=== PATIENT | female | born 1985 | race African-American/Black ===

== ENCOUNTER → 2017-12-09 | Outpatient (CLI) | payer OTHER ==
[2017-12-09 13:45] LABS: BASO # 0.1 10^3/uL (0.0-0.2); BASO % 0.5 % (0.0-1.0); EOS # 0.2 10^3/uL (0.0-0.50); EOS % 1.9 % (0.0-3.0); HEMATOCRIT 38.2 % (36.0-47.0); HEMOGLOBIN 11.9 g/dl (12.0-15.5); IMMATURE GRANULOCYTE % 0.9 % (0-3.0); LYMPH # 2.5 10^3/uL (1.5-4.5); LYMPH % 22.7 % (24.0-44.0); MEAN CORPUSCULAR HEMOGLOBIN 27.9 pg (27.0-33.0); MEAN CORPUSCULAR HGB CONC 31.2 g/dl (32.0-36.5); MEAN CORPUSCULAR VOLUME 89.7 fl (80.0-96.0); MONO # 0.7 10^3/uL (0.0-0.8); MONO % 6.1 % (0.0-5.0); NEUTROPHILS # 7.5 10^3/uL (1.8-7.7); NEUTROPHILS % 67.9 % (36.0-66.0); PLATELET COUNT, AUTOMATED 224 10^3/uL (150-450); RED BLOOD COUNT 4.26 10^6/uL (4.00-5.40); RED CELL DISTRIBUTION WIDTH 12.9 % (11.5-14.5)
[2017-12-09 14:49] LABS: HBsAg Prenatal NEGATIVE (NEGATIVE); HIV 1&2 SCREEN CENTAUR NEGATIVE (NEGATIVE); RUBELLA IgG QUALITATIVE IMMUNE (IMMUNE)
[2017-12-09 14:49] LABS: HEPATITIS C VIRUS ABY INDEX < 0.0 INDEX (<0.8)
[2017-12-09 15:13] LABS: CHLAMYDIA DNA AMPLIFICATION NEGATIVE (NEGATIVE); GC DNA AMPLIFICATION NEGATIVE (NEGATIVE)
== END ==
LOC: M SMT 09:03
DX: Z34.82 Encounter for supervision of other normal pregnancy, second trimester (principal); Z36.89 Encounter for other specified antenatal screening
CPT/HCPCS: 86762

== ENCOUNTER → 2018-01-06 | Outpatient (CLI) | payer OTHER | LOC: M RAD 11:03 | DX: Z34.82 Encounter for supervision of other normal pregnancy, second trimester (principal); Z36.89 Encounter for other specified antenatal screening; Z3A.18 18 weeks gestation of pregnancy | CPT/HCPCS: 76811 ==

== ENCOUNTER → 2018-03-27 | Outpatient (CLI) | payer OTHER ==
--- NOTE | 2018-03-27 21:04 | REP ---
Clinical: Growth discrepancy for re-evaluation. Comparison: 01/06/2018 . Findings: Examination demonstrates a single live intrauterine in cephalic presentation. motion is identified by technologist. Placenta is noted anterior and grade grade 1 without evidence for placenta previa or abruption. Amniotic fluid volume is normal. Cervix appears closed. No evidence for nuchal cord. Gestational age by LMP 29 weeks 4 days with MONIKA 06/08/2018 . Gestational age by current measurements 29 weeks 6 days with MONIKA see 06/06/2018 . FHR equals 147 beats per minute. BPD 7.2 cm 29 weeks 0 days HC 26.6 cm 29 weeks 0 days AC 26.1 cm 30 weeks 2 days FL 6.1 cm 31 weeks 5 days HC/AC ratio 1.02 Estimated weight 1586 grams ( 63rd percentile). Amniotic fluid index: 12.4 cm (9.1 - 23.3) Umbilical cord SD ratio: 2.80 (2.50 - 3.50). Impression: Single live intrauterine in cephalic presentation demonstrating appropriate interval growth. No gross abnormalities are identified. Electronically Signed by Lucio Manrique MD 03/27/2018 08:55 P
== END ==
LOC: M SMT 11:12
PROVIDERS: ATTEND Advanced Practice Midwife
DX: O26.843 Uterine size-date discrepancy, third trimester (principal); Z3A.29 29 weeks gestation of pregnancy

== ENCOUNTER → 2018-03-27 | Outpatient (CLI) | payer OTHER ==
[2018-03-27 13:51] LABS: BASO % 0.4 % (0.0-1.0); EOS # 0.2 10^3/uL (0.0-0.50); EOS % 1.7 % (0.0-3.0); HEMOGLOBIN 9.6 g/dl (12.0-15.5); LYMPH # 1.8 10^3/uL (1.5-4.5); LYMPH % 17.5 % (24.0-44.0); MEAN CORPUSCULAR HEMOGLOBIN 27.8 pg (27.0-33.0); MEAN CORPUSCULAR VOLUME 89.9 fl (80.0-96.0); MONO # 0.8 10^3/uL (0.0-0.8); MONO % 7.6 % (0.0-5.0); NEUTROPHILS # 7.5 10^3/uL (1.8-7.7); NEUTROPHILS % 71.9 % (36.0-66.0); PLATELET COUNT, AUTOMATED 195 10^3/uL (150-450); RED BLOOD COUNT 3.45 10^6/uL (4.00-5.40); WHITE BLOOD COUNT 10.5 10^3/uL (4.0-10.0)
== END ==
LOC: M SMT 08:50
PROVIDERS: ATTEND Specialist
DX: Z34.82 Encounter for supervision of other normal pregnancy, second trimester (principal)

== ENCOUNTER → 2018-05-09 | Outpatient (REF) | payer OTHER | LOC: M LAB REF 13:10 | PROVIDERS: ATTEND Advanced Practice Midwife | DX: O99.213 Obesity complicating pregnancy, third trimester (principal); Z3A.00 Weeks of gestation of pregnancy not specified ==

== ENCOUNTER → 2018-05-16 | Outpatient (CLI) | payer OTHER ==
--- NOTE | 2018-05-16 17:26 | REP ---
Third trimester ultrasound for size, date discrepancy: There is a single intrauterine gestation in a vertex presentation. The heart rate is 147 beats per minute. The placenta is anterior without previa. The amniotic fluid volume subjectively is normal. The amniotic fluid index is 8.1 (7.6 - 24.6). Gestational age by today's ultrasound 36 weeks 4 days /MONIKA 06/09/2018. Gestational age by the first ultrasound is 36 weeks 5 days/MONIKA 06/08/2018. Gestational age by LMP is 36 weeks 5 days/MONIKA 06/08/2018. weight is 3002 grams/6 pounds, 9 ounces. This is the 52nd percentile for 36 weeks 5 days. Umbilical artery mid cord Doppler: S/D ratio 2.62 (2.30-3.30) Resistive Index 0.62 (0.59-0.75 Diastolic Velocity 17.7, (>10 cm/sec) Electronically Signed by Carlos Malhotra MD 05/16/2018 05:18 P
== END ==
LOC: M SMT 12:27
PROVIDERS: ATTEND Obstetrics & Gynecology
DX: O99.213 Obesity complicating pregnancy, third trimester (principal); O26.843 Uterine size-date discrepancy, third trimester; Z3A.36 36 weeks gestation of pregnancy

== ENCOUNTER 2018-06-05 18:17 | Inpatient (IN) | payer OTHER ==
[~2018-06-05] VITALS: Ht 165.1 cm; Wt 150.2 kg
[2018-06-05] VITALS (7 sets, daily range): BP systolic 124–142; BP diastolic 59–72
[2018-06-05 20:46] LABS: HEMATOCRIT 31.3 % (36.0-47.0); HEMOGLOBIN 9.8 g/dl (12.0-15.5); MEAN CORPUSCULAR HEMOGLOBIN 27.8 pg (27.0-33.0); MEAN CORPUSCULAR HGB CONC 31.3 g/dl (32.0-36.5); MEAN CORPUSCULAR VOLUME 88.9 fl (80.0-96.0); PLATELET COUNT, AUTOMATED 211 10^3/uL (150-450); RED BLOOD COUNT 3.52 10^6/uL (4.00-5.40); WHITE BLOOD COUNT 9.9 10^3/uL (4.0-10.0)
[2018-06-05] MEDS: miSOPROStol 50 MCG 1/2 TAB (S0191) SL SCH (20:46)
--- NOTE | 2018-06-05 22:07 | HPE ---
DATE OF ADMISSION: 06/05/2018 A 32-year-old 3, para 2 female at 40 and 1/7 weeks gestation by 14-week ultrasound, estimated date of confinement (EDC) of 06/04/2018, presents for elective induction of labor. She has occasional contractions. She denies vaginal bleeding. COURSE: The patient initiated care at 14 weeks gestation on 12/19/2017. Her blood pressure at that time was 122/70, weight 271 pounds. Her course was unremarkable. Ultrasound for growth on 05/16/2018 estimated weight at 3002 grams or 52nd percentile. OBSTETRICAL HISTORY: 1. February 2005: 39 week vaginal delivery, 6 pound female infant. No complications. 2. January 2007: 40 weeks, vaginal delivery, 6 pound 12 ounce female infant. No complications. MEDICAL HISTORY: Obesity. SURGICAL HISTORY: None. ALLERGIES: None. SOCIAL HISTORY: The patient lives in [place]. The father of the baby is not involved. She denies cigarettes, alcohol, or drug use during . FAMILY HISTORY: Noncontributory. PHYSICAL EXAMINATION: Blood pressure 134/78, weight 340 pounds, pulse 84, She is in no apparent distress. Head and neck exam: Normal. Lungs: Clear. Heart: Regular rate and rhythm. Abdomen: Nontender, gravid. heart tones: Category 1. Sterile Vaginal Exam: 1 cm long, -3 posterior. Extremities: Nontender, 2+ edema lower extremities. LABS: Blood type B positive, rubella immune, RPR nonreactive, diabetes screen 92, GBS negative 05/09/2018. ASSESSMENT: A 32-year-old 3, para 2 female, 40 and 1/7 weeks gestation, presents for labor induction. PLAN: Patient was admitted on 06/05/2018. Risks of induction were discussed.
[2018-06-06] VITALS (47 sets, daily range): BP systolic 107–175; BP diastolic 55–113
[2018-06-06] MEDS: miSOPROStol 50 MCG 1/2 TAB (S0191) SL SCH ×2 (02:04→08:51)
--- NOTE | 2018-06-06 08:02 | IPNPDOC ---
Text Note Date of Service The patient was seen on 06/06/18. NOTE Reports feeling crampy "like menses" Irregular UC on monitor FH Cat I SVE unchanged Continue misoprostol at this time. Consider pitocin and cooks catheter later today Pt plans epidural when required. VS,Fishbone, I+O VS, Fishbone, I+O Laboratory Tests 06/05/18 20:37 Red Blood Count 3.52 L, Mean Corpuscular Volume 88.9, Mean Corpuscular Hemoglobin 27.8, Mean Corpuscular Hemoglobin Concent 31.3 L, Red Cell Distribution Width 13.8 Vital Signs Date Time Temp Pulse Resp B/P (MAP) Pulse Ox O2 Delivery O2 Flow Rate FiO2 06/06/18 07:24 98.4 06/06/18 06:58 76 131/56 (81) 06/06/18 06:01 18 06/05/18 18:46 99 Susan Ferguson CNM Jun 06, 2018 08:02
[2018-06-06] MEDS: miSOPROStol 50 MCG 1/2 TAB (S0191) PO SCH ×3 (14:23→19:55)
[2018-06-06] MEDS ORDERED: OXYTOCIN 30 UNITS IN 0.9% NaCl 500ML IV BAG (J2590) As Ordered ONE (20:06)
--- NOTE | 2018-06-06 20:24 | IPNPDOC ---
Text Note Date of Service The patient was seen on 06/06/18. NOTE Misoprostol x 4 doses Irregular UC Cat I tracing, difficult to trace due to activity SVE /-2, midplane Cooks catheter placed, 60/40 Start pitocin Pt plans epidural VS,Fishbone, I+O VS, Fishbone, I+O Laboratory Tests 06/05/18 20:37 Red Blood Count 3.52 L, Mean Corpuscular Volume 88.9, Mean Corpuscular Hemoglobin 27.8, Mean Corpuscular Hemoglobin Concent 31.3 L, Red Cell Distribution Width 13.8 Vital Signs Date Time Temp Pulse Resp B/P (MAP) Pulse Ox O2 Delivery O2 Flow Rate FiO2 06/06/18 19:32 83 143/74 (97) 06/06/18 19:14 97.7 16 06/05/18 18:46 99 Susan Ferguson CNM Jun 06, 2018 20:24
[2018-06-06] MEDS ORDERED: PROMETHAZINE INJ 25 MG/ML VIAL (J2550) IV ONE (20:30)
[2018-06-06] MEDS ORDERED: BUTORPHANOL 2 MG/ML INJ (J0595) IV ONE (20:30)
[2018-06-06] MEDS ORDERED: OXYTOCIN DRIP 30 UNITS in APPROPRIATE DILUENT 1 EA IV SCH (20:30)
--- NOTE | 2018-06-06 23:30 | IPNPDOC ---
Text Note Date of Service The patient was seen on 06/06/18. NOTE Cooks catheter out in toilet SROM clear blood tinged fluid in toilet SVE /-2 IUPC, FSE placed FH 150, Minimal/moderate variability UC 2-4 minutes apart x 45-60 seconds Pt desires epidural VS,Fishbone, I+O VS, Fishbone, I+O Vital Signs Date Time Temp Pulse Resp B/P (MAP) Pulse Ox O2 Delivery O2 Flow Rate FiO2 06/06/18 21:09 75 18 142/88 (106) 06/06/18 19:14 97.7 06/05/18 18:46 99 Susan Ferguson CNM Jun 06, 2018 23:30
[2018-06-07] VITALS (75 sets, daily range): BP systolic 89–193; BP diastolic 48–114
[2018-06-07] MEDS ORDERED: ENOXAPARIN 40 MG/0.4 ML SYRINGE (J1650) SC SCH
[2018-06-07] MEDS: miSOPROStol 50 MCG 1/2 TAB (S0191) PO SCH ×2 (01:00→05:00)
--- NOTE | 2018-06-07 01:22 | IPNPDOC ---
Text Note Date of Service The patient was seen on 06/07/18. NOTE Anesthesia unable to place epidural catheter. Procedure aborted at pt request IUPC displaced, external toco applied. UC difficult to trace due to habitus FH via FSE minimal/moderate variabilit, Cat II at the moment Hydrate, evaluate for UC and labor progress. Will update physician VS,Fishbone, I+O VS, Fishbone, I+O Vital Signs Date Time Temp Pulse Resp B/P (MAP) Pulse Ox O2 Delivery O2 Flow Rate FiO2 06/06/18 21:09 75 18 142/88 (106) 06/06/18 19:14 97.7 06/05/18 18:46 99 I&O- Last 24 Hours up to 6 AM 06/07/18 06:00 Intake Total 1660 ml Output Total 1450 ml Balance 210 ml Susan Ferguson CNM Jun 07, 2018 01:22
[2018-06-07] MEDS: LR 1,000 ML IV SCH ×3 (02:18→14:29)
--- NOTE | 2018-06-07 05:00 | IPNPDOC ---
Text Note Date of Service The patient was seen on 06/07/18. NOTE Have been unable to initiate pitocin due to intermittant Cat II tracings 4 minute deceleration to 60's with slow return, now 130 with minimal variability UC approximately 10 minutes apart SVE 6 cm, remains far posterior, -3, maternal guarding Dr Wilcox requested to attend VS,Bob, I+O VS, Fishbone, I+O Vital Signs Date Time Temp Pulse Resp B/P (MAP) Pulse Ox O2 Delivery O2 Flow Rate FiO2 06/07/18 03:41 73 16 146/62 (90) 06/07/18 03:04 98.4 06/05/18 18:46 99 I&O- Last 24 Hours up to 6 AM 06/07/18 06:00 Intake Total 3155 ml Output Total 2150 ml Balance 1005 ml Susan Ferguson CNM Jun 07, 2018 05:00
[2018-06-07] MEDS ORDERED: FENTANYL 2MCG/ML ROPIVACAINE 0.2% IN 0.9% NACL 100ML IVBAG As Ordered ONE ×2 (08:07)
[2018-06-07] MEDS ORDERED: EPIDURAL/PCA KEYS XX PRN (08:30)
[2018-06-07] MEDS ORDERED: FENTANYL/ROPIVACAINE/NACL BAG 100 ML EPIDURAL SCH (08:30)
[2018-06-07] MEDS ORDERED: ONDANSETRON 4MG/2ML VIAL (J2405) IV PRN ×2 (08:30→17:00)
[2018-06-07] MEDS ORDERED: ePHEDrine SULFATE 25 MG/5 ML(5MG/ML) SYRINGE IV PRN (08:30)
[2018-06-07] MEDS ORDERED: LACTATED RINGER'S 1000 ML IV PRN (08:30)
[2018-06-07] MEDS ORDERED: diphenhydrAMINE INJ 50MG/ML VIAL (J1200) IV PRN (08:30)
[2018-06-07] MEDS ORDERED: EPIDURAL COMMENT XX SCH (08:30)
[2018-06-07] MEDS ORDERED: REFRIGERATOR IV KEYS XX PRN (08:30)
[2018-06-07] MEDS ORDERED: NALOXONE INJ 0.4 MG/1 ML VIAL (J2310) IV PRN (08:30)
[2018-06-07] MEDS ORDERED: MORPHINE PRES-FREE INJ 10 MG/10 ML VIAL (J2274) As Ordered ONE (13:46)
[2018-06-07] MEDS ORDERED: ONDANSETRON 4MG/2ML VIAL (J2405) As Ordered ONE (13:46)
[2018-06-07] MEDS ORDERED: KETOROLAC 60 MG/2 ML VIAL (J1885) As Ordered ONE (13:46)
[2018-06-07] MEDS ORDERED: BUPIVACAINE/DEXTROSE 0.75% 2 ML AMP As Ordered ONE (13:46)
[2018-06-07] MEDS ORDERED: LIDOCAINE PRES-FREE 2% 10ML AMP As Ordered ONE (13:54)
--- NOTE | 2018-06-07 14:19 | NUR ---
Progress Note Pt comfortable with epidural. No VB. No rectovaginal pressure. Continued LOF. No SILVER, visual changes, RUQ pain, sob, cp. VSS,af, currently normotensive. SVE: 5/50/-3, caput/molding. FSE: reactive, mod maurice, normal baseline, intermittent variable and late decels. Cat II Che[place]an: contractions every 7-10 minutes. A/P: Arrest of dilation. Cat II FHR, but overall reassuring FHR -Pitocin shut off -Recommended proceeding with PLTCS for arrest of dilation. -Pt agrees with plan and informed consent obtained. -Anesthesia notified; preparations for OR being made. Dimple Wilcox DO
[2018-06-07] MEDS ORDERED: BICITRA 30ML SOLN UDC PO ONE (14:30)
[2018-06-07] MEDS ORDERED: AZITHROMYCIN INJ 500 MG, VIAL MATE ADAPTER 1 EACH in D5W 250 ML IV ONE (14:30)
[2018-06-07] MEDS ORDERED: ePHEDrine SULFATE 25 MG/5 ML(5MG/ML) SYRINGE As Ordered ONE (16:08)
[2018-06-07] MEDS ORDERED: PERCOCET PO (16:48)
[2018-06-07] MEDS ORDERED: IBUP80TA PO (16:49)
[2018-06-07] MEDS ORDERED: COLA100C5 PO (16:50)
--- NOTE | 2018-06-07 16:55 | NUR ---
Operative Note Date of procedure: 06/07/2018 Procedure:, Primary low-transverse section Anesthesia: Epidural Preoperative diagnosis: Arrest of dilation at 5 cm Gestational hypertension 40+3 weeks gestation Postoperative diagnosis: Same as preoperative Evidence of pelvic inflammatory disease, pelvic adhesive disease Indication: Arrest of dilation at 5 cm while undergoing an induction of labor Primary surgeon: Joshua Wilcox D.O., [employer]:. Dr. Mamadou DO (needed for surgical site exposure and assistance with delivery) Estimated blood loss: 600 ml IV fluids administered: 700 ml crystalloid Drains: Navarro catheter. Urine output: 100 ml [place] data: Apgars 8 and 9. Birthweight, 3360 g 7 lbs. 7 oz. Male. Preoperative/prophylactic antibiotics: Ancef 2 g IV (given within 30 minutes prior to surgical start time). Azithromycin 500 mg IV 1. Intraoperative findings: Pelvic adhesions all throughout the lower uterine segment and lower abdomen/ pelvis. Cephalic presentation. Specimen(s): None Procedure: The patient was counseled and consented on the risks, benefits, indications and alternatives of the procedure. Informed consent was obtained and placed in the c buchanan. She was taken to the operating room with an IV running. She was placed on the operating table. Spinal anesthesia was administered without any difficulty and found to be adequate. She was placed in the dorsal supine position with a leftward tilt. Sequential compression devices were placed on the lower extremities. A Navarro catheter was placed under sterile conditions. She was sterilely prepped and draped. A surgical timeout was performed per protocol. Spinal anesthesia was again found to be adequate. Using the 10 blade a Pfannenstiel incision was performed. The 10 blade was used to dissect down to the level of the rectus sheath fascia. The rectus sheath fas ernie was incised at the midline, and the fascial incision was extended with Montaño scissors. Dominick clamps were used to grasp the superior and inferior aspect of the fascial incision and the rectus muscle bellies were dissected off sharply and bluntly. The midline was identified and the rectus muscle bellies were manually . The peritoneum was identified and clamped with hemostats and elevated. The peritoneum was then incised with Metzenbaum scissors. Entry into the intraperitoneal cavity was achieved. The peritoneal opening was extended with manual stretch . There was good visualization of both the bladder and the lower uterine segment. The Mobius retractor was placed. The vesicouterine peritoneum was dissected with Metzenbaum scissors and blunt dissection. A low transverse uterine incision was made with a new 10 blade. The hysterotomy was extended with manual stretch. The amniotic sac was protruding and then artificially ruptured. Clear amniotic fluid was noted. The baby's head delivered through the hysterotomy with ease. The remainder of the body delivered with ease. The cord was doubly clamped and cut and the baby was handed off to awaiting care. See data above. The placenta was manually removed and noted to be fully intact. The uterus was exteriorized. The intrauterine cavity was cleared of all clot and debris with a laparotomy sponge. The hysterotomy was closed with 0 Vicryl in running, locked fashion. A second imbricating closure was performed over the initial layer closure using 0 Vicryl. The hysterotomy was noted to be hemostatic. The posterior cul-de-sac was irrigated and cleared of all clot and debris. The uterus was replaced back into the abdomen. The paracolic gutters were cleared of all clot and debris with damp laparotomy sponges. The hysterotomy is reinspected and noted to be hemostatic. Sponge, needle and instrument counts were correct. The peritoneum was closed with 3-0 Vicryl in running fashion. The rectus muscle bellies were reapproximated with 3-0 Vicryl with a series of interrupted sutures. The rectus muscle bellies were noted to be hemostatic. The fascia was closed with 0 Vicryl in running fashion. Sponge, needle and instrument counts were again correct. The subcutaneous layer was irrigated. Small subcutaneous bleeders were cauterized with Bovie. The subcutaneous layer was reapproximated with 3-0 Vicryl in running fashion. The skin was closed with 3-0 Monocryl in subcuticular fashion. A bandage was placed over the closed incision. The final sponge, instrument and needle count was correct. She tolerated the entire procedure very well. She was transferred to the PACU in good and stable condition. Dr. Joshua Wilcox D.O., [email or web address].Chloe.Justen.G
[2018-06-07] MEDS ORDERED: PERCOCET 5MG/325MG TAB PO PRN ×2 (17:00)
[2018-06-07] MEDS ORDERED: MEASLES,MUMPS,RUBELLA VACCINE INJ (MMR-II) (90707) SC SCH (17:00)
[2018-06-07] MEDS ORDERED: METOCLOPRAMIDE INJ 10MG/2ML VIAL (J2765) IV PRN (17:00)
[2018-06-07] MEDS ORDERED: LR 1,000 ML IV SCH (17:00)
[2018-06-07] MEDS ORDERED: PROMETHAZINE 25 MG TAB PO PRN (17:00)
[2018-06-07] MEDS ORDERED: RHOGAM 300 MCG (1500 IU) INJ (J2790) IM SCH (17:00)
[2018-06-07] MEDS ORDERED: fentaNYL 100 MCG/2 ML INJECTION (J3010) IV PRN (17:00)
[2018-06-07] MEDS ORDERED: OXYTOCIN DRIP 30 UNITS in APPROPRIATE DILUENT 1 EA IV SCH (17:15)
[2018-06-07] MEDS: DOCUSATE SODIUM 100 MG CAP PO SCH (21:00)
[2018-06-07] MEDS ORDERED: KETOROLAC 30 MG/ML VIAL (J1885) IV SCH (21:00)
[2018-06-07] MEDS: KETOROLAC 30 MG/ML VIAL (J1885) IV SCH (22:15)
[2018-06-07] MEDS: ONDANSETRON 4MG/2ML VIAL (J2405) IV PRN (22:15)
[2018-06-07] MEDS: ENOXAPARIN 40 MG/0.4 ML SYRINGE (J1650) SC SCH (23:54)
[2018-06-08 02:00] VITALS: BP 133/79
[2018-06-08] MEDS: KETOROLAC 30 MG/ML VIAL (J1885) IV SCH ×2 (04:16→10:00)
[2018-06-08 06:00] VITALS: BP 127/67
[2018-06-08 06:57] LABS: HEMATOCRIT 32.3 % (36.0-47.0); HEMOGLOBIN 9.8 g/dl (12.0-15.5); MEAN CORPUSCULAR HEMOGLOBIN 27.4 pg (27.0-33.0); MEAN CORPUSCULAR HGB CONC 30.3 g/dl (32.0-36.5); MEAN CORPUSCULAR VOLUME 90.2 fl (80.0-96.0); PLATELET COUNT, AUTOMATED 212 10^3/uL (150-450); RED BLOOD COUNT 3.58 10^6/uL (4.00-5.40); WHITE BLOOD COUNT 13.3 10^3/uL (4.0-10.0)
--- NOTE | 2018-06-08 07:56 | NUR ---
Postoperative Day 1 Status post primary low transverse section, uncomplicated. Subjective Pain is well controlled. Lochia is decreasing and minimal. Navarro removed this AM; still due to void. Tolerating a regular diet. Ambulating without any angelica tance. Denies any subjective fever, chills, nausea, vomiting, headache, visual changes, shortness of breath, chest pain. Objective Vitals: Normotensive, normal heart rate, afebrile, adequate urine output. Heart: regular, rate, and rhythm. no murmurs/gallops/rubs Lungs: clear to auscultation bilaterally, no wheezes/crackles/rales/ronchi Abd: soft, nontender, nondistended, uterine fundus is 2cm below umbilicus and firm Incision: clean, dry, intact Ext: no significant edema, nontender, negative Addison's bilaterally. Preoperative H/H: 9.8/31.3 Postoperative H/H: 9.8/32.3 Assessment/Plan: Postoperative day 1 status post primary low transverse section. Recovering well. Hemodynamically stable, afebrile, good pain control. -Routine care -Discharge to home tomorrow -Routine infectious, fever, pain, and bleeding precautions reviewed -Incision/wound care precautions reviewed. Romy Bird.O., F.A.C.O.G.
[2018-06-08] MEDS: ENOXAPARIN 40 MG/0.4 ML SYRINGE (J1650) SC SCH ×2 (08:49→21:01)
[2018-06-08] MEDS: ONDANSETRON 4MG/2ML VIAL (J2405) IV PRN (08:49)
[2018-06-08] MEDS: DOCUSATE SODIUM 100 MG CAP PO SCH ×2 (08:49→21:00)
[2018-06-08] MEDS: PRENATAL VITAMINS CHEWABLE TABLET PO SCH (08:49)
[2018-06-08 10:26] VITALS: BP 129/60
[2018-06-08 14:00] VITALS: BP 138/65
[2018-06-08] MEDS: IBUPROFEN 800 MG TAB PO SCH (18:01)
[2018-06-08 18:07] VITALS: BP 148/66
[2018-06-08 22:00] VITALS: BP 144/70
[2018-06-09 02:00] VITALS: BP 132/68
[2018-06-09] MEDS: IBUPROFEN 800 MG TAB PO SCH ×2 (02:44→09:51)
[2018-06-09 06:00] VITALS: BP 134/67
[2018-06-09] MEDS: PRENATAL VITAMINS CHEWABLE TABLET PO SCH (08:26)
[2018-06-09] MEDS: DOCUSATE SODIUM 100 MG CAP PO SCH (08:26)
[2018-06-09] MEDS: ENOXAPARIN 40 MG/0.4 ML SYRINGE (J1650) SC SCH (08:27)
[2018-06-09 10:39] VITALS: BP 134/67
--- NOTE | 2018-06-09 12:20 | NUR ---
Discharge summary Admission date: 06/05/18 Discharge date: 06/09/18 Admission diagnosis: 40+1 weeks gestation, elective induction of labor Discharge diagnosis: GHTN, failed medical induction of labor/arrest of dilation at 5cm, s/p PLTCS Discharge summary: 32yo [id number]. Admitted at 40+1 weeks for an elective induction of labor. Induction of labor notable for intermittent mildly elevated BPs, GHTN. Induction of labor complicated by arrest of dilation at 5cm. She underwent an uncomplicated PLTCS on 06/07/18. Her postoperative course was uncomplicated. Given her obesity, she was given prophylactic Lovenox during her immediate posto perative course. By postoperative day #2, she was meeting all discharge criteria. She was given routine wound care instructions, and we reviewed fever, infectious, pain, and bleeding precautions. pre-eclampsia precautions also reviewed given her intermittent HTN. She denied any symptoms of SILVER, visual changes, n/v, RUQ pain, sob, or cp. Her discharge medications include: Percocet, Motrin, Colace. She was instructed to follow up in 1-2 weeks in the office for an incision and BP check. Dimple Wilcox DO
== END 2018-06-09 15:35 | disposition home or self-care (01) | DRG 540 ==
LOC: M LDI 18:17 → M OBS 06-07 18:00
PROVIDERS: ADMIT Specialist; ATTEND Obstetrics & Gynecology
PROC: 3E0P7GC Introduction of Other Therapeutic Substance into Female Reproductive, Via Natural or Artificial Opening (ICD-10-PCS; 2018-06-05)
PROC: 10D00Z1 Extraction of Products of Conception, Low, Open Approach (ICD-10-PCS; principal; 2018-06-07 15:25)
DX: O48.0 Post-term pregnancy (principal); Z3A.40 40 weeks gestation of pregnancy; O62.0 Primary inadequate contractions; O13.4 Gestational [pregnancy-induced] hypertension without significant proteinuria, complicating childbirth; O99.214 Obesity complicating childbirth; E66.9 Obesity, unspecified; Z37.0 Single live birth

== ENCOUNTER 2018-09-05 12:37 | Emergency (ER) | payer OTHER ==
[~2018-09-05] VITALS: Ht 165.1 cm; Wt 149.5 kg
[~2018-09-05 12:37] MED LIST: COLA100C5 PO; IBUP80TA PO; PERCOCET PO
[2018-09-05 14:04] LABS: BASO % 0.5 % (0.0-1.0); EOS # 0.2 10^3/uL (0.0-0.50); EOS % 2.7 % (0.0-3.0); HEMATOCRIT 34.5 % (36.0-47.0); HEMOGLOBIN 10.9 g/dl (12.0-15.5); LYMPH # 2.5 10^3/uL (1.5-4.5); LYMPH % 30.1 % (24.0-44.0); MEAN CORPUSCULAR HEMOGLOBIN 27.7 pg (27.0-33.0); MEAN CORPUSCULAR HGB CONC 31.6 g/dl (32.0-36.5); MEAN CORPUSCULAR VOLUME 87.6 fl (80.0-96.0); MONO # 0.6 10^3/uL (0.0-0.8); MONO % 7.3 % (0.0-5.0); NEUTROPHILS # 4.9 10^3/uL (1.8-7.7); NEUTROPHILS % 58.9 % (36.0-66.0); PLATELET COUNT, AUTOMATED 265 10^3/uL (150-450); RED BLOOD COUNT 3.94 10^6/uL (4.00-5.40); WHITE BLOOD COUNT 8.3 10^3/uL (4.0-10.0)
[2018-09-05 14:07] LABS: ALBUMIN 3.2 GM/DL (3.2-5.2); ALT/SGPT 20 U/L (12-78); BILIRUBIN,TOTAL 0.2 MG/DL (0.2-1.0); BLOOD UREA NITROGEN 9 MG/DL (7-18); CALCIUM LEVEL 8.5 MG/DL (8.5-10.1); CARBON DIOXIDE LEVEL 24 MEQ/L (21-32); CHLORIDE LEVEL 112 MEQ/L (98-107); CREATININE FOR GFR 0.86 MG/DL (0.55-1.30); GLOMERULAR FILTRATION RATE > 60.0 (>60); GLUCOSE, FASTING 107 MG/DL (70-100); SODIUM LEVEL 143 MEQ/L (136-145)
[2018-09-05] MEDS ORDERED: IBUP80TA PO (15:04)
[2018-09-05 15:13] VITALS: BP 141/67
== END 2018-09-05 15:17 | disposition home or self-care (01) ==
LOC: M ED 12:37
DX: N92.0 Excessive and frequent menstruation with regular cycle (principal)

== ENCOUNTER → 2019-05-05 | Outpatient (REF) | payer OTHER ==
[2019-05-05 18:17] LABS: BASO % 0.4 % (0.0-1.0); EOS # 0.2 10^3/uL (0.0-0.5); HEMATOCRIT 35.9 % (36.0-47.0); HEMOGLOBIN 10.9 g/dl (12.0-15.5); LYMPH # 2.2 10^3/uL (1.5-5.0); LYMPH % 29.5 % (24.0-44.0); MEAN CORPUSCULAR HEMOGLOBIN 25.8 pg (27.0-33.0); MEAN CORPUSCULAR HGB CONC 30.4 g/dl (32.0-36.5); MEAN CORPUSCULAR VOLUME 85.1 fl (80.0-96.0); MONO # 0.4 10^3/uL (0.0-0.8); MONO % 5.3 % (0.0-5.0); NEUTROPHILS # 4.6 10^3/uL (1.5-8.5); NEUTROPHILS % 62.4 % (36.0-66.0); PLATELET COUNT, AUTOMATED 311 10^3/uL (150-450); RED BLOOD COUNT 4.22 10^6/uL (4.00-5.40); WHITE BLOOD COUNT 7.3 10^3/uL (4.0-10.0)
[2019-05-05 18:23] LABS: ALBUMIN 3.5 GM/DL (3.2-5.2); ALT/SGPT 22 U/L (12-78); BILIRUBIN,TOTAL 0.3 MG/DL (0.2-1.0); BLOOD UREA NITROGEN 9 MG/DL (7-18); CALCIUM LEVEL 8.7 MG/DL (8.5-10.1); CARBON DIOXIDE LEVEL 27 MEQ/L (21-32); CHLORIDE LEVEL 108 MEQ/L (98-107); CHOLESTEROL LEVEL 177 MG/DL (<200); CHOLESTEROL RISK RATIO 3.277 (<5); CREATININE FOR GFR 0.76 MG/DL (0.55-1.30); FREE T4 1.17 NG/DL (0.76-1.46); GLOMERULAR FILTRATION RATE > 60.0 (>60); GLUCOSE, FASTING 103 MG/DL (70-100); HDL CHOLESTEROL 54 MG/DL (>40); LDL CHOLESTEROL 112 MG/DL (<100); NON-HDL-C 123 MG/DL; SODIUM LEVEL 140 MEQ/L (136-145); TOTAL PROTEIN 7.7 GM/DL (6.4-8.2); TRIGLYCERIDES LEVEL 54 MG/DL (<150)
== END ==
LOC: M LAB REF 16:31
PROVIDERS: ATTEND Physician Assistant
DX: R03.0 Elevated blood-pressure reading, without diagnosis of hypertension (principal); M54.5 Low back pain; Z68.43 Body mass index [BMI] 50.0-59.9, adult; E66.01 Morbid (severe) obesity due to excess calories

== ENCOUNTER → 2019-07-22 | Outpatient (REF) | payer OTHER ==
[2019-07-22 14:02] LABS: BASO % 0.4 % (0.0-1.0); EOS # 0.2 10^3/uL (0.0-0.5); HEMATOCRIT 36.7 % (36.0-47.0); HEMOGLOBIN 10.8 g/dl (12.0-15.5); LYMPH # 2.6 10^3/uL (1.5-5.0); LYMPH % 31.4 % (24.0-44.0); MEAN CORPUSCULAR HEMOGLOBIN 25.5 pg (27.0-33.0); MEAN CORPUSCULAR HGB CONC 29.4 g/dl (32.0-36.5); MEAN CORPUSCULAR VOLUME 86.8 fl (80.0-96.0); MONO # 0.5 10^3/uL (0.0-0.8); MONO % 5.8 % (0.0-5.0); NEUTROPHILS # 4.9 10^3/uL (1.5-8.5); NEUTROPHILS % 59.9 % (36.0-66.0); PLATELET COUNT, AUTOMATED 256 10^3/uL (150-450); RED BLOOD COUNT 4.23 10^6/uL (4.00-5.40); WHITE BLOOD COUNT 8.1 10^3/uL (4.0-10.0)
[2019-07-22 14:04] LABS: CHOLESTEROL RISK RATIO 3.291 (<5)
[2019-07-22 14:13] LABS: HEMOGLOBIN A1c 5.9 %
[2019-07-22 14:19] LABS: SICKLE CELL SCREEN NEGATIVE (NEGATIVE)
[2019-07-22 14:51] LABS: TOTAL 25(OH) VITAMIN D 34.5 NG/ML (30.0-100.0)
== END ==
LOC: M LAB REF 13:14
PROVIDERS: ATTEND Physician Assistant
DX: R73.01 Impaired fasting glucose (principal); E55.9 Vitamin D deficiency, unspecified; D57.3 Sickle-cell trait